=== PATIENT | male | born 1935 | race Caucasian/White ===

== ENCOUNTER → 2020-12-14 | Outpatient (CLI) | payer OTHER, BC ==
[~2020-12-14] VITALS: Ht 172.7 cm; Wt 86.2 kg
[~2020-12-14] MED LIST: CENTRUM SILVER1 EAC7 PO; FISH OIL 1,0001 EAC9 PO; FLOMAX0.4 MG PO; NEXIUM; NEXIUM 40 MG CA40 M1 PO; VITAMIN B122500 MCG PO; VITAMIN D3250 MCG PO; VITAMINC500 PO
[2020-12-14 11:22] VITALS: BP 133/76
--- NOTE | 2020-12-14 12:18 | NUR ---
Pain Clinic Assessment: 1. History of Osteoarthritis: Not Applicable History of Rheumatoid Arthritis: Not Applicable 2. Height: 5 ft. 8 in. 172.7 cm. Weight: 190.0 lb. oz. 86.184 kg. Patient's BMI: 28.9 3. Vital Signs: BP: 133/76 Pulse: 76 Resp: 16 Temp: 02 Sat: 95 ECG Mon: 4. Pain Intensity: 5 5. Fall Risk: Dizziness: Y Needs help standing or walking: Y Fallen in the last 3 months: N Fall risk comments: 6. Patient on Blood Thinner: None 7. History of Hypertension: N 8. Opioid Therapy greater than 6 weeks: Opiate Contract Signed: 9. Risk Assessment Tool Provided: 3 LOW RISK 10. Functional Assessment Tool: 11. Recreational Drug Use: Never Drug Type: Tobacco Use: Former Smoker Tobacco Type: Amount or Packs/day: How Many Years: Alcohol Use: No Frequency: Quant:
== END ==
LOC: PAIN 09:03
PROVIDERS: ATTEND Anesthesiology Pain Medicine
DX: M47.26 Other spondylosis with radiculopathy, lumbar region (principal); M48.061 Spinal stenosis, lumbar region without neurogenic claudication

== ENCOUNTER → 2020-12-17 | Outpatient (CLI) | payer OTHER, BC ==
[~2020-12-17] VITALS: Ht 172.7 cm; Wt 86.2 kg
[2020-12-17 13:17] VITALS: BP 125/74
== END | disposition home or self-care (01) ==
LOC: PAIN 10:53
PROVIDERS: ATTEND Anesthesiology Pain Medicine
DX: M54.16 Radiculopathy, lumbar region (principal); M48.061 Spinal stenosis, lumbar region without neurogenic claudication; G89.29 Other chronic pain; Z98.890 Other specified postprocedural states; Z79.899 Other long term (current) drug therapy; Z87.891 Personal history of nicotine dependence; Z88.8 Allergy status to other drugs, medicaments and biological substances

== ENCOUNTER → 2021-01-21 | Outpatient (CLI) | payer OTHER, BC ==
[~2021-01-21] VITALS: Ht 172.7 cm; Wt 89.9 kg
[2021-01-21 09:21] VITALS: BP 139/80
--- NOTE | 2021-01-21 09:33 | NUR ---
Pain Clinic Assessment: 1. History of Osteoarthritis: Not Applicable History of Rheumatoid Arthritis: Not Applicable 2. Height: 5 ft. 8 in. 172.7 cm. Weight: 198.2 lb. oz. 89.903 kg. Patient's BMI: 30.1 3. Vital Signs: BP: 139/80 Pulse: 65 Resp: 18 Temp: 02 Sat: 95 ECG Mon: 4. Pain Intensity: 2 REST;8 WITH ACTIVITY 5. Fall Risk: Dizziness: N Needs help standing or walking: Y Fallen in the last 3 months: N Fall risk comments: 6. Patient on Blood Thinner: None 7. History of Hypertension: N 8. Opioid Therapy greater than 6 weeks: Opiate Contract Signed: 9. Risk Assessment Tool Provided: 3 LOW RISK 10. Functional Assessment Tool: 11. Recreational Drug Use: Never Drug Type: Tobacco Use: Former Smoker Tobacco Type: Amount or Packs/day: How Many Years: Alcohol Use: No Frequency: Quant:
== END ==
LOC: PAIN 06:57
PROVIDERS: ATTEND Anesthesiology Pain Medicine
DX: G89.29 Other chronic pain (principal); M54.16 Radiculopathy, lumbar region; M48.061 Spinal stenosis, lumbar region without neurogenic claudication; Z88.8 Allergy status to other drugs, medicaments and biological substances

== ENCOUNTER → 2021-02-18 | Outpatient (CLI) | payer OTHER, BC ==
[~2021-02-18] VITALS: Ht 172.7 cm; Wt 91.2 kg
[2021-02-18 14:14] VITALS: BP 130/78
--- NOTE | 2021-02-18 14:31 | NUR ---
Pain Clinic Assessment: 1. History of Osteoarthritis: Not Applicable History of Rheumatoid Arthritis: Not Applicable 2. Height: 5 ft. 8 in. 172.7 cm. Weight: 201.0 lb. oz. 91.173 kg. Patient's BMI: 30.6 3. Vital Signs: BP: 130/78 Pulse: 70 Resp: 16 Temp: 02 Sat: 95 ECG Mon: 4. Pain Intensity: 2 REST;6 WITH ACTIVITY 5. Fall Risk: Dizziness: N Needs help standing or walking: Y Fallen in the last 3 months: N Fall risk comments: 6. Patient on Blood Thinner: None 7. History of Hypertension: N 8. Opioid Therapy greater than 6 weeks: N Opiate Contract Signed: 9. Risk Assessment Tool Provided: 3 LOW RISK 10. Functional Assessment Tool: 11. Recreational Drug Use: Never Drug Type: Tobacco Use: Former Smoker Tobacco Type: Amount or Packs/day: How Many Years: Alcohol Use: No Frequency: Quant:
== END | disposition home or self-care (01) ==
LOC: PAIN 13:46
PROVIDERS: ATTEND Anesthesiology Pain Medicine
DX: M54.16 Radiculopathy, lumbar region (principal); M48.061 Spinal stenosis, lumbar region without neurogenic claudication; G89.29 Other chronic pain; Z98.890 Other specified postprocedural states; Z79.899 Other long term (current) drug therapy; Z87.891 Personal history of nicotine dependence; Z88.8 Allergy status to other drugs, medicaments and biological substances

== ENCOUNTER → 2021-05-13 | Outpatient (CLI) | payer OTHER, BC ==
[~2021-05-13] VITALS: Ht 172.7 cm; Wt 92.8 kg
[2021-05-13 13:31] VITALS: BP 135/73
--- NOTE | 2021-05-13 13:49 | NUR ---
Pain Clinic Assessment: 1. History of Osteoarthritis: Not Applicable History of Rheumatoid Arthritis: Not Applicable 2. Height: 5 ft. 8 in. 172.7 cm. Weight: 204.6 lb. oz. 92.806 kg. Patient's BMI: 31.1 3. Vital Signs: BP: 135/73 Pulse: 69 Resp: 18 Temp: 02 Sat: 95 ECG Mon: 4. Pain Intensity: 2 -3 5. Fall Risk: Dizziness: Y Needs help standing or walking: Y Fallen in the last 3 months: N Fall risk comments: 6. Patient on Blood Thinner: None 7. History of Hypertension: N 8. Opioid Therapy greater than 6 weeks: N Opiate Contract Signed: 9. Risk Assessment Tool Provided: 3 LOW RISK 10. Functional Assessment Tool: 11. Recreational Drug Use: Never Drug Type: Tobacco Use: Former Smoker Tobacco Type: Amount or Packs/day: How Many Years: Alcohol Use: No Frequency: Quant:
== END | disposition home or self-care (01) ==
LOC: PAIN 11:04
PROVIDERS: ATTEND Anesthesiology Pain Medicine
DX: M54.16 Radiculopathy, lumbar region (principal); M48.061 Spinal stenosis, lumbar region without neurogenic claudication; G89.29 Other chronic pain; M43.16 Spondylolisthesis, lumbar region; Z98.890 Other specified postprocedural states; Z79.899 Other long term (current) drug therapy; Z88.8 Allergy status to other drugs, medicaments and biological substances